=== PATIENT | female | born 1960 | race African-American/Black ===

== ENCOUNTER 2018-10-28 23:28 | Inpatient (IN) | payer OTHER ==
[~2018-10-28] VITALS: Ht 160 cm; Wt 79.4 kg
[~2018-10-28 23:28] MED LIST: ASCO500C7 GTB; DEXT1DRO6 OP; FAMO20TA18 GTB; FURO20TA3 GTB; HEPA50002 SQ; LACT10SO21 GTB; METO-448 GTB; MULT-105 GTB; POTA10TA37 GTB
[2018-10-28] MEDS ORDERED: CEFEPIME 2GM/50 ML (PMX) 50 ML IVPB STA (23:36)
[2018-10-28] MEDS ORDERED: SODIUM CHLORIDE 0.9% 1L BAG IV* STA (23:36)
[2018-10-29] VITALS (33 sets, daily range): BP systolic 91–125; BP diastolic 58–86; PULSE 65–79; RESP 14–15; Ht 160 cm; Wt 79.4 kg
[2018-10-29] MEDS ORDERED: VANCOMYCIN 1 GM (PMX) 250 ML IVPB ONE
[2018-10-29] MEDS ORDERED: NORepinephrine 8MG/250 ML (PMX 250 ML IV STA (01:22)
[2018-10-29] MEDS ORDERED: SOD CHLORIDE 0.9% 1,000 ML IV SCH (02:01)
[2018-10-29] MEDS ORDERED: VANCOMYCIN IV PER PHARMACY XX SCH (02:30)
[2018-10-29] MEDS ORDERED: ALBUTEROL HFA 8 GM INHALER INH PRN (02:30)
[2018-10-29] MEDS ORDERED: IPRATROPIUM (HFA) 12.9 GM INHALER INH PRN (02:30)
[2018-10-29] MEDS ORDERED: ACETAMINOPHEN 650MG/20.3ML CUP GTB PRN (02:30)
[2018-10-29] MEDS: ALBUMIN HUMAN 25% 100 ML IV SCH ×4 (02:38→09:05)
[2018-10-29] MEDS: PIPER-TAZO 3.375 GM IV (PMX) 100 ML IVPB SCH ×3 (06:02→18:09)
[2018-10-29] MEDS: FAMOTIDINE 20 MG TAB GTB SCH ×3 (06:02→20:32)
[2018-10-29] MEDS: HEPARIN 5,000 UNIT/1 ML VIAL SC SCH ×3 (06:05→22:09)
[2018-10-29] MEDS: LACTULOSE 30ML CUP GTB SCH (09:56)
[2018-10-29] MEDS: POTASSIUM CHLORIDE (SR) 10 MEQ TAB GTB SCH (09:56)
[2018-10-29] MEDS: SOD CHLORIDE 0.9% 1,000 ML IV SCH ×2 (09:57→22:10)
[2018-10-29] MEDS: ASCORBIC ACID 500 MG TAB GTB SCH ×2 (09:57→20:32)
[2018-10-29] MEDS: MULTIVITAMINS/MINERALS TAB GTB SCH (11:49)
[2018-10-29] MEDS: ARTIFICIAL TEARS 15 ML OPH BOTH EYES SCH ×2 (12:55→18:09)
[2018-10-29] MEDS ORDERED: VANCOMYCIN 1 GM 250 ML IVPB SCH (14:00)
[2018-10-30] VITALS (25 sets, daily range): BP systolic 98–136; BP diastolic 59–83; PULSE 68–92; RESP 14–21
[2018-10-30] MEDS: ARTIFICIAL TEARS 15 ML OPH BOTH EYES SCH ×4 (00:16→18:09)
[2018-10-30] MEDS: PIPER-TAZO 3.375 GM IV (PMX) 100 ML IVPB SCH ×2 (00:16→05:31)
[2018-10-30] MEDS: HEPARIN 5,000 UNIT/1 ML VIAL SC SCH ×3 (06:01→21:39)
[2018-10-30] MEDS: ASCORBIC ACID 500 MG TAB GTB SCH ×2 (10:51→21:26)
[2018-10-30] MEDS: FAMOTIDINE 20 MG TAB GTB SCH ×2 (10:51→21:26)
[2018-10-30] MEDS: LACTULOSE 30ML CUP GTB SCH (10:51)
[2018-10-30] MEDS: MULTIVITAMINS/MINERALS TAB GTB SCH (10:52)
[2018-10-30] MEDS: SOD CHLORIDE 0.9% 1,000 ML IV SCH (11:19)
[2018-10-30] MEDS: POTASSIUM CHLORIDE (SR) 10 MEQ TAB GTB SCH (15:46)
[2018-10-31] VITALS (12 sets, daily range): BP systolic 94–139; BP diastolic 71–82; PULSE 76–95; RESP 14–20
[2018-10-31] MEDS: ARTIFICIAL TEARS 15 ML OPH BOTH EYES SCH ×3 (01:27→11:35)
[2018-10-31] MEDS: SOD CHLORIDE 0.9% 1,000 ML IV SCH (01:39)
[2018-10-31] MEDS: HEPARIN 5,000 UNIT/1 ML VIAL SC SCH ×2 (06:06→13:41)
[2018-10-31] MEDS: MULTIVITAMINS/MINERALS TAB GTB SCH (08:41)
[2018-10-31] MEDS: ASCORBIC ACID 500 MG TAB GTB SCH (08:41)
[2018-10-31] MEDS: POTASSIUM CHLORIDE (SR) 10 MEQ TAB GTB SCH (08:41)
[2018-10-31] MEDS: FAMOTIDINE 20 MG TAB GTB SCH (08:41)
[2018-10-31] MEDS: LACTULOSE 30ML CUP GTB SCH (08:41)
== END 2018-10-31 16:38 | DRG 315 ==
LOC: E/R 23:28 → SUATTDRO 10-29 00:18 → ICU 10-29 01:49 → TEL 10-30 08:59
PROVIDERS: ADMIT Family Medicine; ATTEND Family Medicine
PROC: 5A1945Z Respiratory Ventilation, 24-96 Consecutive Hours (ICD-10-PCS; principal; 2018-10-28)
PROC: 4A033R1 Measurement of Arterial Saturation, Peripheral, Percutaneous Approach (ICD-10-PCS; 2018-10-28)
PROC: 06HM33Z Insertion of Infusion Device into Right Femoral Vein, Percutaneous Approach (ICD-10-PCS; 2018-10-28)
PROC: B54BZZA Ultrasonography of Right Lower Extremity Veins, Guidance (ICD-10-PCS; 2018-10-28)
DX: I95.9 Hypotension, unspecified (principal); G93.1 Anoxic brain damage, not elsewhere classified; J96.10 Chronic respiratory failure, unspecified whether with hypoxia or hypercapnia; Z99.11 Dependence on respirator [ventilator] status; E86.0 Dehydration; R13.10 Dysphagia, unspecified; Z93.1 Gastrostomy status; E66.9 Obesity, unspecified; Z93.0 Tracheostomy status; D64.9 Anemia, unspecified; I10 Essential (primary) hypertension; R73.02 Impaired glucose tolerance (oral)
CPT/HCPCS: 36415; 36600; 71045; 74176; 76937; 80053; 80061; 81001; 81003; 82803; 83036; 83605; 83735; 83880; 84145; 84443; 84484; 85025; 85610; 85730; 86850; 86900; 86901; 87045; 87081; 87086; 93005; 93306; 94002; 94003; 96365; 96366; 96368; 96375; J0692; J1644; J2543; J3370; J7030; P9047